=== PATIENT | male | born 1970 | race Caucasian/White ===

== ENCOUNTER 2024-01-13 12:34 | Emergency (ER) | payer OTHER, SELFPAY ==
--- NOTE | ~2024-01-13 | XR_ITS ---
XR finger 5th RT min 2V DATE: 01/13/2024 13:15 INDICATION: Proximal palmar laceration of fifth digit TECHNIQUE: 3 views COMPARISON: None FINDINGS: There is soft tissue bandage overlying the proximal to mid fifth digit. No fracture, dislocation, periosteal reaction or bone destruction, subcutaneous emphysema or radiopaq ue foreign body is noted. IMPRESSION: No fracture, dislocation, radiopaque foreign body Reviewed, dictated and finalized at location J.
[2024-01-13 12:37] VITALS: BP 118/82; PULSE 90; RESP 17; TEMP 36.6; O2SAT 90
[2024-01-13 12:42] VITALS: BP 118/82; PULSE 78; RESP 17; TEMP 36.6; O2SAT 99
[2024-01-13] MEDS: IBUPROFEN 400 MG TABLET 800 MG PO (13:08)
[2024-01-13] MEDS: TETANUS,DIPHTHERIA,AC PERTUSSIS ADULT (0.5 ML) BOOSTRIX IM (13:09)
--- NOTE | 2024-01-13 14:23 | ED.WOUNDLAC ---
HPI - Wound/Laceration General Chief Complaint: Wound/Laceration Stated Complaint: finger laceration Time Seen by Provider: 01/13/24 12:37 Source: patient, family and RN notes reviewed Mode of arrival: ambulatory Limitations: no limitations History of Present Illness HPI narrative: This is a 53 year old right hand dominant male who presents for evaluation of right finger laceration. He states he was working when he accidentally cut his finger with a knife. This happened just prior to arrival. He reports he thinks cut when down to bone. He has mild throbbing pain. He is able to move his finger. He is unsure of his last tetanus. Related Data Allergies Allergy/AdvReac Type Severity Reaction Status Date / Time Penicillins Allergy Hives Verified 01/13/24 12:43 Review of Systems Review of Systems: All systems reviewed & are unremarkable except as noted in HPI and below PMFSH Past Medical History Medical History (Updated 01/13/24 @ 17:51 by Mago Cat MD) Patient denies medical problems Surgical History Surgical History (Updated 01/13/24 @ 17:51 by Mago Cat MD) No pertinent past surgical history Social History Social History (Updated 01/13/24 @ 17:51 by Mago Cat MD) Smoking status: Never smoker Exam Const: General: no acute distress and alert Nutritional Appearance: well nourished Orientation/consciousness: patient oriented x3 HENMT: Head: normal to inspection Resp: Effort & Inspection: normal respiratory effort Neuro: General: patient oriented x3, moves all extremities and CN's II-XI intact bilaterally Gait exam (Neuro): Normal gait present Extrem: Other: right hand with laceration to little finger palmar aspect at PIP joint, no exposed tendon. cap refill 2 ; ROM intact Psych: Mental Status: mental status grossly normal Affect: normal affect Attitude: cooperative Course Reevaluation(s) Date: 01/13/24 Time: 14:23 Vital Signs Vital signs: Vital Signs Temperature 97.8 F 01/13/24 12:37 Pulse Rate 90 01/13/24 12:37 Respiratory Rate 17 01/13/24 12:37 Blood Pressure 118/82 01/13/24 12:37 Pulse Oximetry 90 01/13/24 12:37 Oxygen Delivery Room Air 01/13/24 12:37 Temperature 97.8 F 01/13/24 12:42 Pulse Rate 78 01/13/24 12:42 Respiratory Rate 17 01/13/24 12:42 Blood Pressure 118/82 01/13/24 12:42 Pulse Oximetry 99 01/13/24 12:42 Oxygen Delivery Room Air 01/13/24 12:37 Procedures Laceration Laceration 1: Date: 01/13/24 Time: 14:00 Site: hand Side (If applicable): right Size (cm): 1 Description: linear Depth: simple, single layer Local Anesthetic: bupivacaine 0.5% Amount of anesthesia used (mL): 1 Pre-repair: wound explored and irrigated ====== Skin Level ====== Skin layer closed with: prolene Size (cm): 4-0 Number of sutures: 2 Technique: horizontal mattress ====== Subcutaneous Layer ====== ====== Muscle Layer ====== ====== Tendon Layer ====== Discharge Plan Discharge Clinical Impression: Laceration of finger of right hand Qualifiers: Encounter type: initial encounter Finger: little finger Damage to nail status: without damage Foreign body presence: without foreign body Qualified Code(s): S61.216A - Laceration without foreign body of right little finger without damage to nail, initial encounter Patient Disposition: Home, Self-Care Condition: Stable Instructions: Care For Your Stitches (ED), Laceration (ED) Additional Instructions: Take ibuprofen for your pain. Watch wound for signs of infection. Your sutures will need to be removed in 10-14 days. Follow-up/Referrals: PHYSICIAN NOT ON STAFF,NONSTAFF [Primary Care Provider] -
== END 2024-01-13 14:54 | disposition home or self-care (01) ==
PROVIDERS: Emergency Provider General Practice
DX: S61.216A Laceration without foreign body of right little finger without damage to nail, initial encounter (principal); W26.0XXA Contact with knife, initial encounter; Z23 Encounter for immunization
CPT/HCPCS: 12001; 73140; 90471; 90715; 99283; A9270